=== PATIENT | female | born 1960 | race Caucasian/White ===

== ENCOUNTER 2021-02-26 16:58 | Emergency (ER) | payer BC, MEDICARE, OTHER ==
[~2021-02-26] VITALS: Ht 177.8 cm; Wt 86.5 kg
[2021-02-26] MEDS ORDERED: SODIUM CHLORIDE FLUSH 10ML SYR IVF ONE (17:30)
[2021-02-26] MEDS ORDERED: SODIUM CHLORIDE 0.9% 1,000ML IVBOLUS ONE (17:30)
[2021-02-26 17:55] LABS: BASOPHILS % (AUTO) 1 % (0-1); EOSINOPHILS % (AUTO) 1 % (1-7); LYMPHOCYTES % (AUTO) 13 % (22-44); MEAN CORPUSCULAR HEMOGLOBIN 30.5 pg (27.0-34.8); MEAN CORPUSCULAR HGB CONC 33.9 g/dL (32.4-35.8); MEAN PLATELET VOLUME 8.3 fL (7.4-10.4); MONOCYTES % (AUTO) 12 % (2-9); NEUTROPHILS % (AUTO) 74 % (42-75); PLATELET COUNT 243 x10^3/uL (130-400); RED BLOOD COUNT 3.69 x10^6/uL (3.82-5.3); RED CELL DISTRIBUTION WIDTH 14.2 % (9.6-15.2)
[2021-02-26 17:56] LABS: MD NO
[2021-02-26] MEDS ORDERED: PLEASE ENTER ALLERGIES MC SCH (18:00)
[2021-02-26] MEDS ORDERED: PLEASE ENTER HEIGHT AND WEIGHT MC SCH (18:00)
[2021-02-26 18:05] LABS: ALBUMIN 3.3 g/dL (3.4-5.0); ANION GAP 6 mmol/L (5-15); CALCIUM 8.4 mg/dL (8.5-10.1); CHLORIDE 96 mmol/L (98-107)
[2021-02-26 18:11] LABS: CREATININE 0.87 mg/dL (0.55-1.02); TROPONIN I < 0.015 ng/mL (0.000-0.045)
[2021-02-26 18:44] VITALS: BP 116/60
--- NOTE | 2021-02-26 18:44 | NUR ---
REPORT FROM MOY RN, PT CARE TRANSFERRED AT THIS TIME. NAD, RESTING ON GURNEY, DENIES ADDITIONAL NEEDS AT THIS TIME. BED IN LOWEST, RAILS ENGAGED, CALL LIGHT ON LAP, WCTM. CHART UP FOR RECHECK
--- NOTE | 2021-02-26 18:56 | NUR ---
RN ASSISTED PT TO RESTROOM, AMBULATORY WITH STEADY GAIT, NAD, DENIES ADDITIONAL NEEDS, WCTM. PT TO BE DC'D
--- NOTE | 2021-02-26 19:39 | NUR ---
Patient given discharge instructions and they have confirmed that they understand the instructions. Patient ambulatory with steady gait. NAD, PROVIDED HOSPITAL NON SKID SOCKS FOR SAFETY. ANSWERED QUESTIONS APPROPRIATELY, DENIES ADDITIONAL NEEDS. NO PERSONAL BELONGINGS LEFT IN ROOM AFTER DC
== END 2021-02-26 19:41 | disposition home or self-care (01) ==
LOC: ED 19:15
DX: R55 Syncope and collapse (principal); R10.9 Unspecified abdominal pain; R42 Dizziness and giddiness; E03.9 Hypothyroidism, unspecified
CPT/HCPCS: 36415; 80048; 82040; 84484; 85025; 93005; 96360; 99284; J7030